=== PATIENT | male | born 1990 | race Caucasian/White ===

== ENCOUNTER 2021-04-12 07:24 | Emergency (ER) | payer BC ==
[~2021-04-12] VITALS: Ht 170.2 cm; Wt 113.0 kg
[2021-04-12] MEDS ORDERED: ALBUTEROL (0.083%) 2.5MG/3ML NEB HHN STA (08:31)
[2021-04-12] MEDS ORDERED: BENZONATATE 100MG CAPSULE PO ONE (08:45)
[2021-04-12] MEDS ORDERED: FLUT9.9S BOTHNSTRLS (09:30)
[2021-04-12] MEDS ORDERED: BENZ-16 PO (09:30)
[2021-04-12] MEDS ORDERED: ALBU6.7H9 INH (09:30)
[2021-04-12 10:02] VITALS: BP 132/86
== END 2021-04-12 10:07 | disposition home or self-care (01) ==
LOC: ER 07:24
DX: R06.02 Shortness of breath (principal); I49.9 Cardiac arrhythmia, unspecified; Z20.822 Contact with and (suspected) exposure to COVID-19
CPT/HCPCS: 71045; 93005; 94640; 99285; C9803; U0003; U0005; Z7610

== ENCOUNTER 2023-06-20 01:15 | Emergency (ER) | payer BC, OTHER ==
[~2023-06-20] VITALS: Ht 170.2 cm; Wt 127.0 kg
[~2023-06-20 01:15] MED LIST: ALBU6.7H3 INH; BENZ-16 PO; FLUT9.9S BOTHNSTRLS
[2023-06-20 01:28] VITALS: BP 174/117; PULSE 88; RESP 20; TEMP 98.8; O2SAT 100
[2023-06-20] MEDS: KETOROLAC 60MG/2ML VIAL IM STA (02:41)
[2023-06-20] MEDS ORDERED: AMOX500T2 MT (03:33)
[2023-06-20] MEDS ORDERED: NAPR-681 MT (03:33)
== END 2023-06-20 03:55 | disposition home or self-care (01) ==
LOC: ER 01:15
DX: J02.9 Acute pharyngitis, unspecified (principal)
CPT/HCPCS: 87430; 87070; 96372; 99283; J1885; Z7610